=== PATIENT | male | born 1955 | race Caucasian/White ===

== ENCOUNTER 2024-10-07 20:48 | Emergency (ER) | payer MEDICARE, SELFPAY ==
[2024-10-07 20:54] VITALS: BP 136/75; PULSE 93; RESP 18; TEMP 37.2; O2SAT 97
--- NOTE | 2024-10-07 21:22 | ED_ITS ---
HPI - Psych General Chief Complaint: Psychiatric Symptoms Stated Complaint: SI x 1 week; +ETOH History of Present Illness HPI Narrative: Patient is a 69-year-old male presents to the ER after making suicidal statements to his ex-. He reports event took place earlier this evening, so he made the comment to his ex- I am just going to kill myself. Patient reports he made this statement to get a reaction out of his ex-, but did not have any plan to hurt himself or anyone else. He reports his ex- called the police, who advised patient should come to the hospital for further evaluation. Patient denies any current suicidal ideation, homicidal ideation, thoughts of harming himself. He endorses a history of anxiety, depression, and hypertension, all of which he is medicated. Patient denies any pain at the time of examination. Review of Systems 2 Review of Systems: All systems reviewed & are unremarkable except as noted in HPI and below Exam 2 Narrative: GENERAL: Well appearing, well-nourished, non-toxic, in no acute distress. HEAD: Normocephalic, atraumatic. NECK: Supple. No adenopathy, no masses. RESPIRATORY: Airway patent, respirations nonlabored. Clear to auscultation bilaterally, no rales, rhonchi, wheezing. CARDIOVASCULAR: Regular rate and rhythm without murmurs, rubs, or gallops. Peripheral pulses 2+ and equal bilaterally. ABDOMINAL: Soft, nontender, nondistended, no hepatosplenomegaly. Normoactive BS. MUSCULOSKELETAL: Moves all extremities. Strength/ROM intact without gross deformities. SKIN: Warm, dry, normal color. No rashes. NEURO: A&O X3. Speech clear. Cranial nerves II-XII intact. No ataxic movements. PSYCHIATRIC: Flat affect. Course Vital Signs Vital signs: Vital Signs Temperature 37.2 C 10/07/24 20:54 Pulse Rate 93 10/07/24 20:54 Respiratory Rate 18 10/07/24 20:54 Blood Pressure 136/75 10/07/24 20:54 Pulse Oximetry 97 10/07/24 20:54 Oxygen Delivery Room Air 10/07/24 20:54 Temperature 37.2 C 10/07/24 20:54 Pulse Rate 93 10/07/24 20:54 Respiratory Rate 18 10/07/24 20:54 Blood Pressure 136/75 10/07/24 20:54 Pulse Oximetry 97 10/07/24 20:54 Oxygen Delivery Room Air 10/07/24 20:54 MDM - Psych MDM Narrative Medical decision making narrative: Patient is a 69-year-old male presents to the ER after making suicidal statements to his ex-. He reports event took place earlier this evening, so he made the comment to his ex- I am just going to kill myself. Patient reports he made this statement to get a reaction out of his ex-, but did not have any plan to hurt himself or anyone else. He reports his ex- called the police, who advised patient should come to the hospital for further evaluation. Patient denies any current suicidal ideation, homicidal ideation, thoughts of harming himself. He endorses a history of anxiety, depression, and hypertension, all of which he is medicated. Patient denies any pain at the time of examination. Labs Ordered: CBC, CMP, TSH, UDS, UA, Tylenol level, COVID/flu/RSV, salicylate level Imaging Ordered: None necessary Medications Ordered: None necessary Results: Patient's lab work was unremarkable for any acute abnormalities. Diagnosis: Risk for suicidal ideation Consults: Mental health intake 0-patient is clinically stable for intake evaluation. Patient Education/Shared MDM: Psychiatric intake evaluated patient. They developed a safety plan for patient and advise, from their perspective, he is reasonable for discharge. Patient strongly advised to follow-up with PCP as soon as possible. He will not be discharged home with any new prescriptions. Strict return precautions provided. Patient verbalized understanding and is in agreement with plan. Vital signs stable at time of discharge. All questions answered. Differential Diagnosis Differential diagnosis: Likely acute psychosis, suicidal ideation, depression and acute anxiety Lab Data Attestation: I reviewed the patient's lab results. 10/07/24 21:22 10/07/24 21:22 Labs: Lab Results 10/07/24 10/07/24 Range/Units 21:22 21:26 WBC 8.1 (4.5-10.0) K/mm3 RBC 5.16 (4.6-6.20) M/mm3 Hgb 17.8 (14.0-18.0) g/dL Hct 49.1 (42.0-52.0) % MCV 95.2 (80-100) fl MCH 34.5 H (26-34) pg MCHC 36.3 H (32-36) g/dl RDW 12.5 (11.5-14.5) % Plt Count 298 (150-375) k/mm3 MPV 9.1 (7.4-10.4) fl Immature Gran % (Auto) 0.2 (0-0.5) % Neut % (Auto) 62.0 (45.5-73.1) % Lymph % (Auto) 29.0 (18.3-44.2) % Sampson % (Auto) 6.7 (2.6-8.5) % Eos % (Auto) 1.4 (0-4.4) % Baso % (Auto) 0.7 (0.2-1.2) % Lymph # (Auto) 2.35 (0.9-3.2) K/mm3 Sampson # (Auto) 0.5 (0.1-0.6) K/mm3 Eos # (Auto) 0.1 (0-0.3) K/mm3 Baso # (Auto) 0.1 (0.0-0.1) K/mm3 Abs Immat Gran (auto) 0.02 (0.00-0.031) K/mm3 Absolute Neuts (auto) 5.0 (1.3-6.7) K/mm3 Absolute Nucleated RBC 0.000 (0.0-0.012) K/mm3 Nucleated RBC % 0.0 (0.0-0.2) % Sodium 138 (137-145) mmol/L Potassium 3.8 (3.4-5.0) mmol/L Chloride 103 (98-107) mmol/L Carbon Dioxide 19 L (22-30) mmol/L Anion Gap 16 H (4-12) mmol/L BUN 8 L (9-20) mg/dL Creatinine 0.92 (0.7-1.3) mg/dL Estim Creat Clear Calc 86 ml/min Estimated GFR > 60 (59 - ) Glucose 114 H (65-110) mg/dL Calcium 9.6 (8.4-10.2) mg/dL Total Bilirubin 0.6 (0.2-1.3) mg/dL AST 44 (17-59) U/L ALT 42 (6-50) U/L Alkaline Phosphatase 92 (38-126) U/L Total Protein 8.1 (6.3-8.2) g/dL Albumin 4.5 (3.5-5.1) g/dL TSH 2.740 (0.465-4.680) uIU/mL Urine Color Yellow (Yellow) Urine Appearance Clear (Clear) Urine pH 5.5 (5.0-9.0) Ur Specific [place] 1.008 (1.001-1.035) Urine Protein Negative (Negative) mg/dL Urine Glucose (UA) Negative (Negative) mg/dL Urine Ketones Trace H (Negative) mg/dL Ur Blood (Man) Negative (Negative) Urine Nitrate Negative (Negative) Urine Bilirubin Negative (Negative) Urine Urobilinogen 0.2 (<2.0) mg/dL Leukocyte Esterase Rfl Trace H (Negative) ANGELITO/UL Urine RBC 0-2 (0-2) /hpf Urine WBC 0-5 (0-3) /hpf Ur Squamous Epith Cells None seen (Few) /hpf Urine Bacteria None seen /hpf Urine Casts 0-2 Salicylates < 1.0 L (2-20) mg/dL Urine Opiates Screen Negative (Negative) Urine Methadone Screen Negative (Negative) Acetaminophen < 10 L (10-30) ug/mL Ur Barbiturates Screen Negative (Negative) Ur Phencyclidine Scrn Negative (Negative) Ur Amphetamine Screen Negative (Negative) U Benzodiazepines Scrn Negative (Negative) Urine Cocaine Screen Negative (Negative) U Cannabinoids Screen Negative (Negative) Ethyl Alcohol 82 (<10) mg/dL Influenza A (RT-PCR) Negative (Negative) Influenza B (RT-PCR) Negative (Negative) RSV (RT-PCR) Negative (Negative) SARS-CoV-2 RNA (RT-PCR) Negative (Negative) Discharge Plan Discharge Clinical Impression: Suicidal behavior without attempted self-injury, Suicidal thoughts, Depressed affect Patient Disposition: Home Condition: Stable Instructions: Antibiotic Form, Depression (ED) Additional Instructions: Please return to the ER with any worsening symptoms. Follow-up with primary care provider as soon as possible. Take all medications as prescribed, including regularly scheduled medications. Patient Language: Venezuelan Follow-up/Referrals: Calvin, Sohan [Other] Time of Disposition: 23:44
--- NOTE | 2024-10-07 21:25 | PC.NURSE ---
Pt father updated per pt request.
[2024-10-07 21:32] LABS: Hematocrit 49.1 % (42.0-52.0); Hemoglobin 17.8 g/dL (14.0-18.0); Immature Granulocyte Percent A 0.2 % (0-0.5); Lymphocytes Absolute Auto 2.35 K/mm3 (0.9-3.2); Mean Corpuscular HGB Conc 36.3 g/dl (32-36); Mean Corpuscular Hemoglobin 34.5 pg (26-34); Mean Corpuscular Volume 95.2 fl (80-100); Nucleated Red Blood Cells Absolute Auto 0.000 K/mm3 (0.0-0.012); Nucleated Red Blood Cells Perc 0.0 % (0.0-0.2); Platelet Count Result 298 k/mm3 (150-375); Red Blood Count 5.16 M/mm3 (4.6-6.20); White Blood Count 8.1 K/mm3 (4.5-10.0)
[2024-10-07 21:36] LABS: Add Urine Microscopic? YES; Appearance Urine Clear (Clear); Glucose Urine UA Negative (Negative); Leukocyte Esterase Ur Trace LEU/UL (Negative); Nitrate Urine Negative (Negative); Non Pathogenic Casts 0-2; Specific Grav Ur 1.008 (1.001-1.035)
[2024-10-07 21:41] LABS: Acetaminophen < 10 ug/mL (10-30); Salicylate < 1.0 mg/dL (2-20)
[2024-10-07 21:42] LABS: Alanine Aminotransferase 42 U/L (6-50); Albumin Level 4.5 g/dL (3.5-5.1); Alkaline Phosphatase 92 U/L (38-126); Anion Gap 16 mmol/L (4-12); Aspartate Amino Transferase 44 U/L (17-59); Bilirubin,Total 0.6 mg/dL (0.2-1.3); Blood Urea Nitrogen 8 mg/dL (9-20); Calcium 9.6 mg/dL (8.4-10.2); Carbon Dioxide 19 mmol/L (22-30); Chloride 103 mmol/L (98-107); Estimated CRCL calculation 86 ml/min; Estimated Glomerular Filt Rate > 60; Glucose 114 mg/dL (65-110); Potassium 3.8 mmol/L (3.4-5.0); Sodium 138 mmol/L (137-145); Total Protein 8.1 g/dL (6.3-8.2)
[2024-10-07 21:52] LABS: Cannabinoid Screen Urine Negative (Negative)
[2024-10-07 22:07] LABS: Influenza A QL RT-PCR Negative (Negative); Influenza B QL RT-PCR Negative (Negative); RSV RNA, RT-PCR Negative (Negative); SARS-CoV-2 RNA PCR Negative (Negative)
[2024-10-07 22:13] LABS: Thyroid Stimulating Hormone 2.740 uIU/mL (0.465-4.680)
--- OUTSIDE RECORDS SUMMARY | 2024-10-07 22:14 | XMS_ITS | Clinical Summary ---
Author Organization [facility] [facility] Address [address] [place] [address] Care Team Providers Care Body Designer Name Role Phone Renny Rogers MD Primary Care Provider Unavailab le Source Comments [facility],non-owned Affiliates and Associated Physician Practices is amultiple site organization consisting of ambulatory clinics and hospital sitesin [place], [place], [place] and [place]. This disclosure is being madepursuant to the Care Everywhere program and may not contain all information available regarding this patient. Last updated 17.[facility] Allergies No known active allergies Medications * Be aware that medications may not be up to date on this document. Alwaysverify current medications with the patient. venlafaxine XR 24hr (EFFEXOR XR) 150 MG capsule Take 150 mg by mouth daily with breakfast. Active lorazepam (ATIVAN) 1 MG tablet Take 1 mg by mouth every 4 hours as needed for Anxiety. Active lisinopril (PRINIVIL; ZESTRIL) 20 MG tablet Take 1 Tab by mouth daily. 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 Gender Identity Not on file Sexual Orientation Not on file Plan of Treatment Health Maintenance Due Date Last Done Comments COLOGUARD (AGES 45-75) - COL ON CA SCREENING 1957 COLON MONITORING 1957 COLONOSCOPY - COLON CA SCREENING 1957 CT COLONOGRAPHY - COLON CA SCREENING 1957 Colorectal Cancer Screening 1957 FIT - COLON CA SCREENING 1957 FLEX SIG - COLON CA SCREENING 1957 LIPID TESTING 1957 HEPATITIS C SCREENING 06/26/1975 DTAP/TDAP/TD VACCINES (1 - Tdap) 1976 PNEUMOCOCCAL VACCINE 50+ (1 of 1 - PCV) 07/01/2007 ZOSTER VACCINE (1 of 2) 07/01/2007 COVID-19 VACCINE (1 - 2023-2 5 season) 2023 DEPRESSION SCREENING 03/25/2024 INFLUENZA VACCINE (#1) 2024 Respiratory Syncytial Virus (RSV) Vaccine Pt: or over 60 yrs (1 - 1-dose 75+ series) 2032 HEPATITIS B VACCINE Aged Out No longe r eligible based on patient's age to complete this topic HIB VACCINE Aged Out No longer eligi ble based on patient's age to complete this topic HPV VACCINE Aged Out No longer eligi ble based on patient's age to complete this topic MENINGOCOCCAL (Group B) VACC INE SHARED DECISION-MAKING Aged Out No longer eligibl e based on patient's age to complete this topic MENINGOCOCCAL GROUPS A/C/Y/W VACCINE Aged Out No longer eligible b ased on patient's age to complete this topic Care Teams Body Designer Relationship Specialty Start Date End Date Renny Rogers MD PCP - General 09/07/08
--- NOTE | 2024-10-07 23:30 | PC.NURSE ---
crisis at bedside
[2024-10-07 23:59] VITALS: BP 131/90; PULSE 72; RESP 16; O2SAT 98
== END 2024-10-08 00:02 | disposition home or self-care (01) ==
PROVIDERS: Emergency Provider Registered Nurse
DX: R45.851 Suicidal ideations (principal); F32.A Depression, unspecified; Z20.822 Contact with and (suspected) exposure to COVID-19
CPT/HCPCS: 36415; 80053; 80143; 80179; 80307; 81001; 82077; 84443; 85025; 87637; 99284